=== PATIENT | male | born 1995 | race Caucasian/White ===

== ENCOUNTER → 2017-12-21 | Outpatient (CLI) | payer OTHER ==
--- NOTE | 2017-12-21 11:11 | RADIOLOGY IMAGING REPORT ---
[place] [facility] [place] NAME: Benjy Pichardo : 1995 MR: [id number] V: [id number] EXAM DATE: ORDERING PHYSICIAN: KATY BRICENO TECHNOLOGIST: Location: [facility] [place] Patient: Benjy Pichardo : 1995 Visit/Account:[id number] Date of Sevice: 12/21/2017 Technique: LUMBAR SPINE 4 VIEWS HISTORY: Previous injury, radicular pain Comparison studies: None FINDINGS: There is no acute fracture. The vertebral body heights and alignment are maintained. Scatte red endplate osteophytes are noted. Soft tissues are unremarkable. IMPRESSION: 1. No acute osseous process. 2. Endplate osteophytosis. Report Dictated By: Main Shoemaker DO at 12/21/2017 11:02 AM Report E-Signed By: Main Shoemaker DO at 12/21/2017 11:05 AM WSN:[id number]
== END ==
LOC: RAD 09:59
PROVIDERS: ATTEND Chiropractor
DX: M25.78 Osteophyte, vertebrae (principal)
CPT/HCPCS: 72120